=== PATIENT | female | born 1955 | race Caucasian/White ===

== ENCOUNTER 2023-08-29 21:00 | Inpatient (IN) | payer OTHER, SELFPAY ==
[2023-08-29] VITALS (9 sets, daily range): BP systolic 79–186; BP diastolic 40–105; BMI 37.1; BMI 36.8
[2023-08-29 19:05] LABS: % Basophils 0.7 % (0-2); % Eosinophils 3.7 % (0-6); % Immature Granulocytes 0.3 % (0-0.5); % Lymphocytes 29.3 % (20.5-51.1); % Monocytes 6.6 % (1.7-9.3); % Neutrophils 59.4 % (42.2-75.2); Absolute Basophils 0.1 10^3/uL (0-0.2); Absolute Eosinophils 0.3 10^3/uL (0-0.7); Absolute Lymphocytes 2.1 10^3/uL (1.2-3.4); Absolute Monocytes 0.5 10^3/uL (0.1-0.6); Absolute Neutrophils 4.3 10^3/uL (1.4-6.5); Hemoglobin 12.8 g/dL (12.0-16.0); Mean Corp Hgb Conc. 33.7 g/dL (33.0-37.0); Mean Corpuscular Hgb 30.9 pg (27.0-31.0); Mean Corpuscular Volume 91.8 fL (81.0-99.0); Mean Platelet Volume 9.9 fL (7.4-10.4); Nucleated Red Blood Cells % 0 %; Platelet Count 222 10^3/uL (130-400); Red Blood Cell Count 4.14 10^6/uL (4.20-5.40); White Blood Cell Count 7.3 10^3/uL (4.8-10.8)
--- NOTE | 2023-08-29 19:15 | ED.GENMED ---
History of Present Illness
General
Chief Complaint: Heart Rate Problem
Source: patient, spouse, family and physician (Dr. Acuna, cardiology)
Exam Limitations: none
Time Seen by Provider: 08/29/23 19:05
Nursing documentation reviewed up to this point in time: agreed with
Travel History
Have you had any contact with someone who has COVID-19?: No
Do you have any symptoms of coronavirus? Fever > 100 degrees, chills, cough, shortness of breath, sore throat, loss of taste or smell, muscle aches, or headache?: No
History of Present Illness
History of Present Illness:
67-year-old female presents the emergency department due to episodes of asystole. She had her first episode of syncope in March, and had fallen down the stairs as a result. She fractured her elbow then. She had another episode in April.
She had a loop recorder placed, and it showed that she had an asystole episode on Tuesday. On Tuesday she had a syncope episode and her gave her CPR. She was brought to [facility] emergency department. She was discharged. Loop
recorder was reviewed, and showed asystole.
Past History
Past History
ED Past Medical History: Arrthythmia, Renal failure and Other (Syncope, diverticulitis)
ED Past Surgical History: Cardiac (Cardiac catheterization) and Other (Nasal Mohs)
Social History
Tobacco: Non-smoker
Alcohol: None
Drug: None
Personal:
Living: with family
Review of Systems
Review of Systems
Allergies reviewed?: Yes
All Other Systems: Not applicable
Constitutional: Reports no symptoms
EENT: Reports no symptoms
Respiratory: Reports no symptoms
Cardiac: Reports syncope
ABD/GI: Reports no symptoms
: Reports no symptoms
Musculoskeletal: Reports no symptoms
Skin: Reports no symptoms
Neurological: Reports no symptoms
Endocrine: Reports no symptoms
Hematologic/Lymphatic: Reports no symptoms
Psychiatric: Reports no symptoms
Phy Exam
Physical Exam
Physical Exam:
Physical Exam
General: no apparent distress, not acutely ill
Neck: supple. no meningeal signs. normal posterior pharynx
Heart: s1/s2 regular rate and rhythm, no murmur. equal radial
pulses.
HEENT: Pupils equal round reactive to light, EOMI
Lungs: no acute respiratory distress. clear bilaterally
Abdomen: normal bowel sounds. not tender. no CVAT
Neuro: alert and oriented. no focal neurological deficits cranial nerves II through XII intact
Skin: no rash
Psychiatric: well kept. interactive and cooperative
Extremities: no edema. no calf tenderness. negative homans. good distal pulses
Course
Orders/Labs/Results
Orders:
Orders
08/29/23 18:48
Electrocardiogram (*1) Urgent
Reason for Study: Chest Pain
EKG- Treatment ONCE
08/29/23 18:58
Complete Blood Count/With Diff Urgent
Comprehensive Metabolic Panel Urgent
Troponin I Urgent
Abnormal Lab Results
08/29/23
18:58
RBC 4.14 L 10^6/uL
(4.20-5.40)
08/29/23 18:58
Vital Signs
Initial and Last Documented VS:
Initial Vital Signs
Temp Pulse Resp BP Pulse Ox
98.1 F 62 18 186/100 99
08/29/23 18:42 08/29/23 18:42 08/29/23 18:42 08/29/23 18:42 08/29/23 18:42
Last Documented Vital Signs
Temp Pulse Resp BP Pulse Ox
98.1 F 62 18 186/100 99
08/29/23 18:42 08/29/23 18:42 08/29/23 18:42 08/29/23 18:42 08/29/23 18:42
*Pulse Oximetry
Patient hypoxic: no
*EKG
Interpreted by ED Provider?: Yes
EKG Intrepretation Date: 08/29/23
EKG Intrepretation Time: 18:52
Interpretation: abnormal
Comparison EKG: no comparison EKG present
Heart Rate: 64
Rate: normal
Rhythm: sinus
[place]: left axis deviation
Interval: normal interval
QRS Pattern: normal QRS
Ischemia: no ischemia
*[place] Interpretation
Rate: normal
Interpretation: normal
Heart Rate: 65
Rhythm: sinus
*Critical Care Note
Total Time (30-74mins, 75-104mins- exclusive of procedures): Not Applicable
Data Reviewed
Review of Other/Old Records Reveals: Records
Source: physician (Dr. Acuna states LINQ showed asystole episode)
Patient Management
Social determinants of health affecting care: Living situation and Strong social support
Escalation/DeEscalation of care consider admission/obs:
admit for pacemaker indicated
ED Attending Note
-
Portions of this chart may have been created with voice recognition software.� Occasional wrong word or��sound alike� substitutions may have occurred due to the inherent limitations of voice recognition software.
Discharge Plan
Departure
Admit to: IVU
Presentation/result/management discussed w/ accepting MD/DO: Hospitalist
Patient with high blood pressure during this ER visit?: Yes
Condition: Good
Discharge Problem:
Cardiac asystole
Prescriptions:
No Action
multivitamin Tablet
1 tab PO DAILY
carvedilol 12.5 mg Tablet
12.5 mg PO BID
isosorbide mononitrate 30 mg Tablet Extended Release 24 Hr
30 mg PO QPM
lansoprazole 15 mg Capsule,Delayed Release(Dr/Ec)
15 mg PO DAILY
aspirin 81 mg Tablet,Chewable
81 mg PO DAILY
calcium citrate 150 mg Capsule
600 mg PO BID
rosuvastatin 10 mg Tablet
10 mg PO HS
ranolazine 1,000 mg Tablet Extended Release 12 Hr
1,000 mg PO BID
D3
1 tab PO DAILY
MegaRed [place]-3 Krill Oil
1 tab PO DAILY
Interventions
Interventions:
*Risk Screen - Suicide Last Done: 08/29/23 18:47
*General Assessment Last Done: 08/29/23 18:47
*Neglect/Abuse Screening Last Done: 08/29/23 18:47
[2023-08-29 19:21] LABS: ALT (SGPT) 19 U/L (0-35); AST (SGOT) 25 U/L (14-36); Albumin 3.6 g/dl (3.5-5.0); Alkaline Phosphatase 83 U/L (38-126); Blood Urea Nitrogen 17 mg/dl (7-17); Calcium 9.9 mg/dl (8.4-10.2); Carbon Dioxide 27 mmol/L (22-30); Chloride 107 mmol/L (98-107); Glucose 104 mg/dl (70-99); Potassium 5.3 mmol/L (3.5-5.1); Sodium 140 mmol/L (135-145); Total Bilirubin 0.5 mg/dl (0.2-1.3); Total Protein 6.9 g/dl (6.3-8.2); eGFR > 60.00
[2023-08-29 19:28] LABS: Troponin I < 0.012 ng/ml
--- NOTE | 2023-08-29 20:50 | HPS.HSE ---
Addendum entered and electronically signed by Rik Potter DO 08/29/23 21:54:
Patient seen and examined independently. Agree with findings and plan as set forth by Fátima Kay PA-C.
Patient is a 67y F with PMH significant for hypertension who presents to ED at the direction of her outpatient Leathersmith for evaluation of marked pause / asystole. Patient apparently had a 'syncopal' episode last Tuesday. She felt as if
she were passing out and called for her . He entered to find her unresponsive and apparently pulseless. He started CPR and patient regained pulse / consciousness after about one minute. She was taken to [facility] where she was
admitted for several days. EEG was done (results reportedly pending) and patient was apparently diagnosed with seizure disorder and started on Vimpat and Topiramate.
Patient returned to home where she states she has been feeling well since. Today, she was called by her Leathersmith and advised that she had a significant pause / episode of asystole on her implanted cardic monitor. This apparently corresponds
with her episode last Tuesday.
Ass:
Marked Sinus Pause / Asystole
Recurrent Syncope - Likely secondary to the above
Cardiac Microvascular Disease
Benign Hypertension
Dyslipidemia
CKD II
GERD
Plan:
Admit to IVU with transcutaneous pacer pads in place.
Hold AV jayde agents acutely.
NPO after midnight for probable PPM placement in the AM.
Cardiology consulted.
Continue ASA, antianginal agents.
Original Note:
Family Physician
-
Family Physician: NOT KNOW UNKNOWN - PT DOES
Chief Complaint
-
Syncope
History of Present Illness
Patient is a 67 y/o female past medical history of cardiac microvascular, hypertension, and CKD II who presents following multiple syncope episode. Patient reports she had a loop recorder placed in May 2023 following a syncopal episode that
resulted in a fall down the stairs, and a second near syncopal episode. Last Tuesday, Aug 24 patient had a significant syncopal episode. She states she began to feel 'wonky' and called for her . Her found her pulseless and he
started CPR. He notes after about 10 compressions she started to come around, and she was taken to [facility]. While at [facility] she had an extensive work-up including carotid ultrasound, echocardiogram and EEG. She was discharged on
Aug 26 with the diagnosis of seizure and was started on Vimpat and Topamax. Today patient received a call from her tech brazer tester that her loop recorder showed a prolonged pause on Tuesday and she was instructed to go to the emergency department
for evaluation. Patient denies any complaints at the present time.
Medical History
Past Medical History
Past Medical History: Reports Other
Additional Past Medical History:
Cardiac Microvascular Disease
Essential Hypertension
Hyperlipidemia
CKD Stage II
GERD
Past Surgical History: Reports Other
Additional Past Surgical History:
Moh's Surgery
Social History
Tobacco: Non-smoker
Personal:
Living: With Family
Family History
Family History: Not pertinent
Allergies / Home Medications
Allergies reflects when Allergies were last updated in [employer].
Home Medications with original date entered in Txt[employer]
Allergy/Medication List:
Allergies
Allergy/AdvReac Type Severity Reaction Status Date / Time
No Known Allergies Allergy Verified 08/29/23 18:42
Home Medications
aspirin 81 mg chewable tablet 81 mg PO DAILY 05/18/23
carvedilol 12.5 mg tablet 12.5 mg PO BID 05/18/23
cholecalciferol (vitamin D3) 25 mcg (1,000 unit) tablet (Vitamin D3) 25 mcg PO DAILY ##0 05/18/23
isosorbide mononitrate 30 mg tablet,extended release 24 hr 30 mg PO DAILY 05/18/23
lansoprazole 15 mg capsule,delayed release 15 mg PO DAILY 05/18/23
multivitamin 1 tab PO DAILY 05/18/23
omega 3-ivz-msg-fish oil 1,000 mg (120 mg-180 mg) capsule (Fish Oil) 1 cap PO DAILY ##0 05/18/23
ranolazine 1,000 mg tablet,extended release,12 hr 1,000 mg PO BID 05/18/23
rosuvastatin 10 mg tablet 10 mg PO HS 05/18/23
calcium carbonate 500 mg calcium (1,250 mg) tablet 500 mg PO DAILY 08/29/23
lacosamide 50 mg tablet (Vimpat) 50 mg PO BID 08/29/23
topiramate 25 mg tablet 25 mg PO BID 08/29/23
Review of Systems
-
A 12 point ROS was completed and negative except as noted: Yes
Constitutional: Denies Fever or Chills
Respiratory: Denies Cough or Trouble Breathing
Cardiac: Reports Syncope; Denies Chest Pain or Palpitations
Physical Exam
Vital Signs
Vital Signs
Temp Pulse Resp BP Pulse Ox
98.1 F 65 20 125/89 98
08/29/23 18:42 08/29/23 20:24 08/29/23 20:24 08/29/23 20:24 08/29/23 20:24
Physical Exam
General: Comfortable and Conversant
HEENT: Anicteric and Moist mucous membranes
Respiratory: Clear and Non Labored Respirations
Cardiac: S1/S2 and Regular Rhythm
GI: Soft and Non Tender
Rectal: Deferred by Provider
Musculoskeletal: No Clubbing, No Cyanosis and No Edema
Skin: Warm and Dry
Neuro: Awake, Oriented and Nonfocal/grossly intact
Psych: Calm
Laboratory Results
-
08/29/23 18:58
08/29/23 18:58
Laboratory Results
Total Bilirubin 0.5 mg/dl (0.2-1.3) 08/29/23 18:58
AST 25 U/L (14-36) 08/29/23 18:58
ALT 19 U/L (0-35) 08/29/23 18:58
Alkaline Phosphatase 83 U/L (38-126) 08/29/23 18:58
Troponin I < 0.012 ng/ml 08/29/23 18:58
Data Reviewed
-
Lab Data: Labs Reviewed by me
Impression/Plan
-
Recurrent Syncope secondary to Prolonged Pause
-Admit to IVU for continuous monitoring
-Keep defibrillator pads in place
-NPO after midnight for pacemaker placement
-Discontinue seizure medications
Cardiac Microvascular Disease
-Continue aspirin
-Continue Ranexa
-Continue isosorbide mononitrate
Essential Hypertension
-Hold Coreg in setting prolonged pauses
Hyperlipidemia
-Continue Crestor
CKD Stage II
-Creatinine at baseline
GERD
-Continue Protonix
DVT proph: SCDs
Code Status: Full Code
[2023-08-29 21:11] LABS: Urine Albumin Negative (Neg - Trace); Urine Bilirubin Negative (Negative); Urine Character Clear (Clear); Urine Color Yellow; Urine Glucose Negative (Negative); Urine Ketone Negative (Negative); Urine Leukocyte Negative (Negative); Urine Nitrite Negative (Negative); Urine Occult Blood Negative (Negative); Urine Specific Gravity 1.005 (<1.030); Urine Urobilinogen Negative (Neg - 1+); Urine pH 6.5 (5.0-9.0)
--- NOTE | 2023-08-29 23:20 | PTCARENOTE ---
Patient arrived to the floor, bedrest maintained. Placed on telemetry. Patient is AO x3, denies lightheadedness. SR with first degree HB, BBB, prolonged QT, HR 60-70's. NPO past midnight, plan of care reviewed with patient and family, call lugo in
reach
[2023-08-29] MEDS: CRESTOR 10 MG PO (23:44)
[2023-08-30] VITALS (9 sets, daily range): BP systolic 110–165; BP diastolic 54–86
[2023-08-30 05:11] LABS: Hematocrit 36.6 % (37.0-47.0); Hemoglobin 12.4 g/dL (12.0-16.0); Mean Corp Hgb Conc. 33.9 g/dL (33.0-37.0); Mean Corpuscular Hgb 30.8 pg (27.0-31.0); Mean Corpuscular Volume 90.8 fL (81.0-99.0); Mean Platelet Volume 9.8 fL (7.4-10.4); Platelet Count 198 10^3/uL (130-400); Red Blood Cell Count 4.03 10^6/uL (4.20-5.40); Red Cell Dist. Width 14.1 % (11.5-14.5); White Blood Cell Count 7.1 10^3/uL (4.8-10.8)
--- NOTE | 2023-08-30 05:32 | PTCARENOTE ---
NPO since midnight, CHG wipes to chest, gown and leads changed.
[2023-08-30 05:34] LABS: Blood Urea Nitrogen 13 mg/dl (7-17); Calcium 9.3 mg/dl (8.4-10.2); Carbon Dioxide 26 mmol/L (22-30); Chloride 109 mmol/L (98-107); Estimated Creatinine Clearance 60 ml/min; Glucose 100 mg/dl (70-99); Magnesium 2.1 mg/dl (1.6-2.3); Sodium 139 mmol/L (135-145); eGFR > 60.00
[2023-08-30 06:03] LABS: TSH Reflex To Free T4 6.82 uIU/ml (0.47-4.68)
--- NOTE | 2023-08-30 07:34 | CON.CAR ---
Addendum entered and electronically signed by Ashutosh Sky MD 08/30/23 14:09:
Patient seen, interviewed and examined by me.
Well-appearing, no acute distress
Regular rate and rhythm with normal S1 and S2, no S3 no S4. There is a grade 1/6 apical holosystolic murmur and no rubs. PMI is normally placed.
Lungs are clear to auscultation bilaterally without wheezes rales or rhonchi.
Abdomen soft nontender nondistended with normoactive bowel sounds
Extremities show trace pretibial edema bilaterally no clubbing or cyanosis.
Neurologic exam is grossly nonfocal.
Agree with advanced practice professionals assessment and plan as noted below.
Patient has symptomatic nonreversible bradycardia related to intermittent complete heart block. She tells me she has developed left bundle branch block and likely has progressive conduction system disorder.
I reviewed this with the patient, her and her daughter. We discussed management options and have settled on implantation of permanent pacemaker. I explained permanent pacemaker implantation as well as possible risks and she wishes to
proceed with both pacemaker implantation as well as removal of implanted loop recorder. Informed consent obtained by me. Will proceed with removal of loop recorder and implantation of dual-chamber permanent pacer later today.
Original Note:
Consultation
Consultation Request
Date/Time Consultation Requested: 08/29/23 at 2316
Date/Time Consultation Performed: 08/30/23 at 0735
Requesting Provider: Dr. Huff
Performing Provider: Dr. Ashutosh Sky
Reason for Consultation: Syncope, complete heart block
Medical History
-
History of Present Illness:
Patient came to [facility] yesterday after an outpatient device check found she had complete heart block 08/24/23, cardiology is now consulted for a PPM today. Patient had an Dominguez ILR placed 05/18/23 after she was seen at [facility] for syncope while walking
up stairs. Patient then had an episode of witnessed syncope on Tuesday night, 08/24/23. Her did CPR and she awoke and was taken to [facility]. Patient was admitted Tuesday and nights and was discharged to home on
Tuesday. Patient says she told [facility] that she had an ILR, but it was not interrogated. Patient's called [facility] office to ask if anything was seen on ILR, but last transmission was Tuesday night, 08/23/23 and patient's event was
Tuesday night and she missed her usual nightly download because she was admitted to [facility]. Then she was discharged on Tuesday and when her device downloaded Tuesday night the information was not seen in the office until Tuesday
morning. Once information was received Tuesday the patient was called and asked to come to [facility]. Patient has not had recurrent events.
PMH:
s/p Dominguez ILR 05/18/23
cLBBB
HTN
Hyperlipidemia
Cardiac microvascular disease
Past Medical History
Past Medical History: Other (in HPI)
Past Surgical History: Gynecological (D&C)
Social History
Tobacco: Non-Smoker
Alcohol: None
Drug: None
Personal:
Living: With Family
Family History
Family History: CAD and Diabetes
Allergies / Home Medications
Allergy/AdvReac Type Severity Reaction Status Date / Time
No Known Allergies Allergy Verified 08/29/23 18:42
Medication Instructions Recorded Confirmed Type
aspirin 81 mg chewable tablet 81 mg PO DAILY 05/18/23 08/29/23 History
carvedilol 12.5 mg tablet 12.5 mg PO BID 05/18/23 08/29/23 History
cholecalciferol (vitamin D3) 25 25 mcg PO DAILY ##0 05/18/23 08/29/23 History
mcg (1,000 unit) tablet (Vitamin
D3)
isosorbide mononitrate 30 mg 30 mg PO DAILY 05/18/23 08/29/23 History
tablet,extended release 24 hr
lansoprazole 15 mg capsule,delayed 15 mg PO DAILY 05/18/23 08/29/23 History
release
multivitamin 1 tab PO DAILY 05/18/23 08/29/23 History
omega 4-igv-hkk-fish oil 1,000 mg 1 cap PO DAILY ##0 05/18/23 08/29/23 History
(120 mg-180 mg) capsule (Fish Oil)
ranolazine 1,000 mg 1,000 mg PO BID 05/18/23 08/29/23 History
tablet,extended release,12 hr
rosuvastatin 10 mg tablet 10 mg PO HS 05/18/23 08/29/23 History
calcium carbonate 500 mg calcium 500 mg PO DAILY 08/29/23 08/29/23 History
(1,250 mg) tablet
lacosamide 50 mg tablet (Vimpat) 50 mg PO BID 08/29/23 08/29/23 History
topiramate 25 mg tablet 25 mg PO BID 08/29/23 08/29/23 History
Review of Systems
-
History Source: Patient
All other systems: Negative unless noted
Physical Exam
Vital Signs
Temp Pulse Resp BP Pulse Ox
97.5 F 63 16 148/80 98
08/30/23 07:20 08/30/23 07:20 08/30/23 07:20 08/30/23 04:18 08/30/23 07:20
GEN: NAD. AAOx3
HEENT: EOMI, MMM
LUNGS: CTA B/L, no wheezes or rales
CV: Reg, S1/S2, no murmur
ABD: soft, BS+, NT, ND
EXT: No clubbing, cyanosis, lesions or edema B/L
NEURO: Gross non-focal
SKIN: Warm, dry and pink. No rash
Lab Results
08/30/23 04:26
08/30/23 04:26
Troponin I < 0.012 ng/ml 08/29/23 18:58
Impression / Plan
-
PCP: Dr. Noemi Montemayor
Cardiology: Dr. Acuna
Impression:
Syncope with complete heart block, asystole, received bystander CPR 08/24/23
s/p Dominguez ILR 05/18/23
cLBBB
HTN
Hyperlipidemia
Cardiac microvascular disease
Hyperkalemia
Echo 01/05/23: EF 55-60%, mild conc LVH, normal RV size and function
Plan:
-Patient came to [facility] yesterday after an outpatient device check found she had complete heart block 08/24/23, cardiology is now consulted for a PPM today. Patient had an Dominguez ILR placed 05/18/23 after she was seen at [facility] for syncope while walking
up stairs. Patient then had an episode of witnessed syncope on Tuesday night, 08/24/23. Her did CPR and she awoke and was taken to [facility]. Patient was admitted Tuesday and nights and was discharged to home on
Tuesday. Patient says she told [facility] that she had an ILR, but it was not interrogated. Patient's called [facility] office to ask if anything was seen on ILR, but last transmission was Tuesday night, 08/23/23 and patient's event was
Tuesday night and she missed her usual nightly download because she was admitted to [facility]. Then she was discharged on Tuesday and when her device downloaded Tuesday the information was not seen in the office until Tuesday
morning. Once information was received Tuesday the patient was called and asked to come to [facility]. Patient has not had recurrent events.
-ECG and ILR strips reviewed by me. ECG this admission with SR and cLBBB.
-ILR downloads nightly at approx midnight to 3 AM, she had syncope Tuesday night around 11 PM and then went to [facility]. ILR not checked during admission. Patient returned home Tuesday and device appropriately downloaded Tuesday
and information received and reviewed Tuesday in the office. Reviewed with patient
-Patient with complete heart block/asystole during her 08/24/23 night episode and a PPM is indicated.
-Reviewed pacer implant procedure with patient along with post-implant activity restrictions.
-Pre-implant orders placed
-LBBB is chronic
-Hyperkalemia on admission that resolved without specific intervention
[2023-08-30] MEDS: PROTONIX 20 MG PO (08:15)
[2023-08-30] MEDS: LOW STRENGTH ASPIRIN 81 MG PO (08:15)
[2023-08-30] MEDS: RANEXA EXTENDED RELEASE 1000 MG PO ×2 (08:15→20:02)
[2023-08-30] MEDS: IMDUR (EXTENDED RELEASE) 30 MG PO (08:16)
--- NOTE | 2023-08-30 08:49 | PTCARENOTE ---
Assumed care of pt from night RN. Pt received awake and alert, Ox3. VSS, CM shows SB with first degree AVB and RBBB, POX 98% on RA. Pt denies any pain or discomfort, for possible PPM today.
--- NOTE | 2023-08-30 08:56 | W.PN.HOSP.TC ---
Today's Communication/Plan
-
Keep defibrillator pads in place
PPM placement today
N.p.o.
Hold Coreg in the setting of asystole and long pauses
Assessment / Plan
Assessment / Plan
Assessment:
Presentation with recurrent syncopal episodes.
Hyperkalemia on admission.
Subclinical hypothyroidism.
Conditions SURGERY SCHEDULER:
Cardiac Microvascular Disease
Benign Hypertension
Dyslipidemia
History of CKD II
GERD
Plan:
Presentation with recurrent syncopal episodes
-Last episode August 24, 2023 with asystole recorded by ILR 08/24.
-ECG on admission with sinus rhythm and left bundle branch block likely chronic.
-S/p loop recorder placement May 2023 with marked Sinus Pause/Asystole
-Recurrent Syncope -Likely secondary to the above.
-Keep defibrillator pads in place pending PPM placement.
-Plan for PPM placement today.
-N.p.o.
-Hold antiseizure medications, consider discontinuing at discharge.
-Cardiology consult.
-Continue antianginal agents.
-Continue ASA.
-Hold carvedilol for now.
Subclinical hypothyroidism
-Start levothyroxine 50 mcg daily.
-TSH with reflex T4 assay in 3 weeks.
Cardiac Microvascular Disease
-Continue isosorbide mononitrate and ranolazine.
-Continue ASA.
-Hold carvedilol.
Benign Hypertension
-Hold carvedilol in the setting of long pauses/asystole
Dyslipidemia
-Continue rosuvastatin.
History of CKD II
-Stable with baseline creatinine.
GERD
-Continue Protonix
DVT prophylaxis
-SCDs
Anticipated Discharge: 24 - 48 hours
Subjective/Interval History
-
Date of Service: August 30, 2023
67-year-old female with a past medical history of left bundle branch block, hypertension, hyperlipidemia, cardiac microvascular disease, CKD II, who presented to the ED with episodes of recurrent syncope. last episode was on Aug 24 when her loop
recorder recorded a prolonged pause corresponding to asystole. Her sternman reviewed the report yesterday and instructed her to come in for evaluation and possible PPM placement.
Objective Data
-
Labs:
Laboratory Results
08/30/23
04:26
WBC 7.1
Hgb 12.4
Hct 36.6 L
Plt Count 198
Sodium 139
Potassium 4.0
Chloride 109 H
Carbon Dioxide 26
BUN 13
Creatinine 1.0
Glucose 100 H
Calcium 9.3
Vital Signs:
Vital Signs
Temp Pulse Resp BP Pulse Ox
97.5 F 65 16 141/70 98
08/30/23 07:20 08/30/23 08:00 08/30/23 07:20 08/30/23 07:20 08/30/23 08:41
Physical Exam
-
General: Well Developed and No Apparent Distress
HEENT: Normocephalic, Atraumatic and Moist Mucous Membranes
Respiratory: Clear to Auscultation
Cardiac: Regular Rhythm and S1/S2; Negative Murmur, Rub or Gallop
GI: Soft, Nontender, Nondistended and Normal Bowel Sounds; Negative Organomegaly
Rectal: Deferred by Provider
Musculoskeletal: No Clubbing, No Cyanosis and No Edema
Skin: Negative Rash
Neuro: Awake, Alert, Oriented, AO x 3 and Nonfocal/Grossly Intact
Psych: Calm and Intact Judgement/Insight
Data Reviewed
-
Labs: Labs Reviewed by me and Discussed with Physician
Old Records: Reviewed
--- NOTE | 2023-08-30 14:20 | W.PN.UPDATE ---
Update Note
Progress Note Update
Patient seen and examined
Discussed with resident
Impression:
Syncope with complete heart block, asystole, CPR applied by at home on 08/24.
Prior history of syncope with loop recorder implanted on 05/26.
Chronic LBBB.
Hypothyroidism, subclinical, possibly symptomatic given complete heart block
Cardiac microvascular disease on Ranexa.
Essential hypertension
Mild hyperkalemia on presentation
Plan:
Documented complete heart block/asystole.
Temporary pacer in place from ED.
Pending PPM placement
Hold Coreg
With elevated TSH (normal free T4) suspect subclinical�symptomatic hypothyroidism given complete heart block on presentation
Will start low-dose of levothyroxine at 50 mcg daily and follow-up TFTs in 4 to 6 weeks
Cardiac microvascular disease
No prior history of obstructive CAD.
Eventually resume preadmission regimen including Coreg, Imdur, aspirin, statin, Ranexa.
Recent hospitalization with syncope in outside hospital most likely related to cardiac.
Retrospectively less likely seizure disorder.
Discussed with patient
Plan is to discontinue lacosamide and topiramate.
--- NOTE | 2023-08-30 14:32 | CM ---
spoke to pt in room, she is prev indep, lives with her husb in a 2 story home with 4 steps to enter. she denies any dme's or dc planning needs. plan is for dc to home when medically stable.
--- NOTE | 2023-08-30 15:14 | PTCARENOTE ---
Pt to CCL for PPM insertion.
--- NOTE | 2023-08-30 17:41 | ITS.CL.PACE ---
Addendum entered and electronically signed by Ashutosh Sky MD 09/07/23 11:08:
Actual date of procedure is 08/30/2023
Additionally during this procedure the implanted loop recorder was removed using the same incision from the permanent pacemaker device implantation. No additional incisions were required to remove the loop recorder.
Original Note:
Logistics Director - Pacemaker Implant
Pacemaker Implant
Procedure Report:
PACEMAKER IMPLANT REPORT
Primary Care Provider: Dr Noemi Montemayor
Primary wire stockkeeper: Dr Fanta Acuna
Date of Procedure: 5 09/28/2023
Procedure:
Implantation of dual-chamber permanent pacemaker utilizing the left bundle branch for conduction system pacing
Removal of implanted loop recorder
Indication/Diagnosis:
Non-reversible symptomatic bradycardia due to sinus node dysfunction as well as intermittent third degree atrioventricular block resulting in recurrent syncope.
After informed consent was obtained, 'time out' was called and confirmed, the patient was prepped and draped in a sterile fashion. Lidocaine with epi was used for local anesthesia. Central venous access was obtained via subclavian venipuncture. An
incision was made along the left chest and a pre-pectoral pocket was formed. Using a Seldinger technique and peel-away sheaths, the pacing leads were placed under fluoroscopic guidance.
Fluoroscopy was used to determine likely anatomic site for left bundle branch pacing. The Medtronic C315 sheath was used to deliver the Medtronic 3830 Selectsecure pacing lead with the helix exposed just exposed from the sheath tip during continuous
monitoring when pacemapping the septum during gentle clockwise rotation to obtain a paced QRS morphology of a W pattern in lead V1. Once the suspected optimal site was identified, lead deployment was performed with several rapid rotations as paced
QRS morphology was intermittently monitored until a paced QRS complex in lead V1 demonstrated development of an R wave (qR or rSR).
Unipolar pacing impedance dropped by approximately 100-200 ohms suggesting it had reached the left ventricular subendocardial.
Stable VEgm with positive injury current is present throughout lead position and at end of case.
Final unipolar pacing impedance is 1000 Ohms
Unipolar pacing threshold is stable at 0.5 V @ 0.4 ms.
The patient had pre-existing left bundle branch block at baseline with QRS dur 156 ms.
Final conduction system paced QRS complex duration is 117 ms
LVAT is 85] ms and peak V5 -> peak V1 timing is 42 ms
Right atrial lead was placed at the RAA.
Once testing (see below) showed adequate and stable function, the leads were secured using the suture sleeves. The pocket was liberally irrigated with antibiotic solution. The leads were connected to the generator header and the leads and
generator were placed within the pocket. Fluoroscopy confirmed stable lead position. The pocket was closed in the typical fashion.
Fluoroscopy was used to guide lead placement. Fluoroscopic exposure [ ] min and [ ] mGy
IMPLANTS:
Medtronic [id number], Left Pectoral
RA: Medtronic 5076-45, RAA
RV: Medtronic 3830, Interventricular septum at LBB
DEVICE TESTING:
Sensing: RA 3.5 mV, RV 17.7 mV
Capture: RA 0.7 V@0.4ms, RV 0.5 V@0.4ms
Ohms: RA 640, RV 912
FINAL PROGRAMMING
Joe Pacing: DDDR 60-130 ppm (note Paced AV Delay programmed to 50 ms to provide optimal QRS configuration with conduction system pacing).
COMPLICATIONS:
None
CONCLUSIONS:
1: Successful implant of dual chamber permanent pacemaker utilizing Left Bundle Branch conduction system capture for pacing. Overall findings are most consistent with Left Ventricular Septal capture.
RECOMMENDATIONS:
1. Post-op care (tele, CXR, IV abx)
2. In-Office wound check in 5-7 days
Copy to:
Dr Noemi Montemayor
Dr Fanta Acuna
--- NOTE | 2023-08-30 18:03 | PTCARENOTE ---
Assumed care of pt upon tsf from [facility] post left PPM placement. Pt arrives drowsy but oriented, VSS, CM shows SB with first degree AVB, with BBB. POX 98% on RA. Immobilizer intact to left arm, pressure dsg over Aquacel intact, area soft and non
tender. Family at bedside.
[2023-08-30] MEDS: COREG 12.5 MG PO (20:02)
[2023-08-30] MEDS: CRESTOR 10 MG PO (22:26)
[2023-08-30] MEDS: ANCEF 5 IV (22:27)
--- NOTE | 2023-08-30 22:58 | PTCARENOTE ---
Pt rec'd at change of shift awake,alert no complaints. left ant chest pacer site with pressure drsg and sling in place. cxr completed in dept with no pneumo noted. HOB at 30 degrees. sinus with first degree BBB on telemetry. assisted to bathroom to
void. gait steady. call lugo within reach.
[2023-08-31] MEDS: TYLENOL 650 MG PO ×2 (03:00→09:08)
[2023-08-31 03:10] VITALS: BP 141/79
--- NOTE | 2023-08-31 03:41 | PTCARENOTE ---
Pt oob to void. medicated with Tylenol for mild pain at pacer site. Sinus with BBB on telemetry.
[2023-08-31 04:36] LABS: Hematocrit 36.4 % (37.0-47.0); Hemoglobin 12.3 g/dL (12.0-16.0); Mean Corp Hgb Conc. 33.8 g/dL (33.0-37.0); Mean Corpuscular Hgb 30.8 pg (27.0-31.0); Mean Platelet Volume 10.2 fL (7.4-10.4); Platelet Count 200 10^3/uL (130-400); Red Cell Dist. Width 14.2 % (11.5-14.5)
[2023-08-31 05:13] LABS: Blood Urea Nitrogen 15 mg/dl (7-17); Calcium 9.2 mg/dl (8.4-10.2); Carbon Dioxide 27 mmol/L (22-30); Chloride 105 mmol/L (98-107); Estimated Creatinine Clearance 60 ml/min; Glucose 105 mg/dl (70-99); Potassium 4.4 mmol/L (3.5-5.1); Sodium 138 mmol/L (135-145); eGFR > 60.00
[2023-08-31] MEDS: ANCEF 5 IV (06:09)
[2023-08-31] MEDS: SYNTHROID 50 MCG PO (06:09)
--- NOTE | 2023-08-31 06:35 | PTCARENOTE ---
Pt reports good relief from Tylenol. No c/o pain at present.
[2023-08-31 07:49] VITALS: BP 134/73
[2023-08-31] MEDS: IMDUR (EXTENDED RELEASE) 30 MG PO (09:07)
[2023-08-31] MEDS: COREG 12.5 MG PO (09:07)
[2023-08-31] MEDS: RANEXA EXTENDED RELEASE 1000 MG PO (09:07)
[2023-08-31] MEDS: LOW STRENGTH ASPIRIN 81 MG PO (09:07)
[2023-08-31] MEDS: PROTONIX 20 MG PO (09:08)
--- NOTE | 2023-08-31 09:43 | W.PN.HOSP.TC ---
Today's Communication/Plan
-
S/p PPM placement 08/30
Continue preadmission regimen
Hold antiseizure medications with plans to discontinue at discharge
Patient with elevated TSH and normal free T4. Suspect subclinical hypothyroidism. Continue levothyroxine and recheck thyroid function test in 4 to 6 weeks.
Assessment / Plan
Assessment / Plan
Assessment:
Presentation with recurrent syncopal episodes.
Hyperkalemia on admission.
Subclinical hypothyroidism.
Conditions ASSOCIATE MEDIA PLANNER:
Cardiac Microvascular Disease
Benign Hypertension
Dyslipidemia
History of CKD II
GERD
Plan:
Presentation with recurrent syncopal episodes
-S/p loop recorder placement May 2023 with recorded sinus Pause/Asystole.
-S/p PPM placement 08/30
-ECG on admission with sinus rhythm and left bundle branch block likely chronic, temporary pacer placed in the ED here
-Recurrent Syncope -Likely secondary to the above.
-Cardiology appreciated.
-Continue preadmission regimen including ASA, Coreg, Imdur, statin, Ranexa.
Subclinical hypothyroidism
-Patient with elevated TSH and normal free T4. Suspect subclinical hypothyroidism.
-Start levothyroxine 50 mcg daily.
-TSH with reflex T4 assay in 4-6 weeks.
Suspected seizure disorder with recurrent syncopal episodes.
-Syncope most likely cardiac related.
-Hold antiseizure medications with plans to discontinuing at discharge.
Cardiac Microvascular Disease
-Continue isosorbide mononitrate and ranolazine.
-Continue ASA.
-Hold carvedilol.
Benign Hypertension
-Hold carvedilol in the setting of long pauses/asystole
Dyslipidemia
-Continue rosuvastatin.
History of CKD II
-Stable with baseline creatinine.
GERD
-Continue Protonix
DVT prophylaxis
-SCDs
Anticipated Discharge: Within 24 hours
Subjective/Interval History
-
Date of Service: August 31, 2023
Objective Data
-
Labs:
Laboratory Results
08/31/23
03:18
WBC 8.0
Hgb 12.3
Hct 36.4 L
Plt Count 200
Sodium 138
Potassium 4.4
Chloride 105
Carbon Dioxide 27
BUN 15
Creatinine 1.0
Glucose 105 H
Calcium 9.2
Vital Signs:
Vital Signs
Temp Pulse Resp BP Pulse Ox
97.5 F 69 16 134/73 99
08/31/23 07:46 08/31/23 08:45 08/31/23 07:46 08/31/23 07:49 08/31/23 09:02
I&O
08/30/23 08/31/23 09/01/23
06:59 06:59 06:59
Intake Total 240 / 240 180 / 180
Balance 240 / 240 180 / 180
Review of Systems
-
History Source: Patient
All other systems: Not reviewed unless documented
Constitutional: Reports No Symptoms
EENT: Reports No Symptoms Reported
Respiratory: Reports No Symptoms
Cardiac: Reports No Symptoms
Abdomen/GI: Reports No Symptoms
Genitourinary: Reports No Symptoms
Musculoskeletal: Reports No Symptoms
Skin: Reports No Symptoms
Neuro: Reports No Symptoms
Endocrine: Reports No Symptoms
Physical Exam
-
General: Well Developed and No Apparent Distress
HEENT: Normocephalic, Atraumatic, Moist Mucous Membranes and PERRLA
Respiratory: Clear to Auscultation
Cardiac: Regular Rhythm and S1/S2; Negative Murmur, Rub or Gallop
GI: Soft, Nontender, Nondistended and Normal Bowel Sounds; Negative Organomegaly
Rectal: Deferred by Provider
Musculoskeletal: No Clubbing, No Cyanosis and No Edema
Skin: Warm and Dry; Negative Rash
Neuro: Awake, Alert, Oriented, AO x 3 and Nonfocal/Grossly Intact
Psych: Calm and Intact Judgement/Insight
Data Reviewed
-
Labs: Labs Reviewed by me and Discussed with Physician
Old Records: Reviewed
--- NOTE | 2023-08-31 11:01 | W.PN.CARDCBS ---
Today's Communication / Plan
-
Stable for discharge to home today
Impression / Plan
-
PCP: Dr. Noemi Montemayor
Cardiology: Dr. Acuna
Impression:
Syncope with complete heart block, asystole, received bystander CPR 08/24/23
s/p Dominguez ILR 05/18/23
cLBBB
HTN
Hyperlipidemia
Cardiac microvascular disease
Hyperkalemia
Echo 01/05/23: EF 55-60%, mild conc LVH, normal RV size and function
Plan:
She underwent successful implantation of Medtronic dual-chamber conduction system pacing system, conduction pacing via left bundle branch conduction system. Implanted loop recorder was also removed
Hemodynamically stable. Vital signs stable.
Chest x-ray with no pneumothorax and stable position of the leads. Laboratory studies reviewed, stable.
I took the dressing down and the Aquacel dressing underneath is clean and dry.
I did interrogate the pacemaker which has normal function. I have reprogrammed the device from MVP mode to DDDR mode with short AV intervals to promote resynchronization pacing.
She has a wound check at our office November 05 at 2:20 PM.
Stable for discharge from a cardiac standpoint.
Progress Note - Province Archivist
Subjective
Date of Service: August 31, 2023
Feels well, no chest pain shortness of breath palpitations or dizziness
Objective
Labs:
08/31/23 03:18
08/31/23 03:18
Labs
Hgb 12.3 g/dL (12.0-16.0) 08/31/23 03:18
Hct 36.4 % (37.0-47.0) L 08/31/23 03:18
Plt Count 200 10^3/uL (130-400) 08/31/23 03:18
Sodium 138 mmol/L (135-145) 08/31/23 03:18
Potassium 4.4 mmol/L (3.5-5.1) 08/31/23 03:18
BUN 15 mg/dl (7-17) 08/31/23 03:18
Creatinine 1.0 mg/dL (0.6-1.0) 08/31/23 03:18
Glucose 105 mg/dl (70-99) H 08/31/23 03:18
Troponins
08/29/23
18:58
Troponin I < 0.012
Vital Signs and I&O:
Vital Signs
Temp Pulse Resp BP Pulse Ox
97.5 F 69 16 134/73 99
08/31/23 07:46 08/31/23 08:45 08/31/23 07:46 08/31/23 07:49 08/31/23 09:02
Vital Signs
Temp Pulse Resp BP Pulse Ox
97.5 F 69 16 134/73 99
08/31/23 07:46 08/31/23 08:45 08/31/23 07:46 08/31/23 07:49 08/31/23 09:02
Intake & Output
08/29/23 08/30/23 08/31/23 09/01/23
06:59 06:59 06:59 06:59
Intake Total 240 / 240 180 / 180
Balance 240 / 240 180 / 180
Physical Exam
Physical Exam
Well-appearing no acute distress
Dressing at left chest is clean dry
Heart regular rate and rhythm normal S1-S2 no S3 no S4 is grade 1/6 apical holosystolic murmur no rubs
Lungs are clear auscultation bilaterally
--- NOTE | 2023-08-31 11:25 | W.DS.TRANS ---
Documented by User: Tray Jay MD, Resident 08/31/23 12:11
DC Summary - Nurse Emergency Room
-
Discharge Instructions:
Discharge Diagnosis/Procedures Pacemaker implant
Diet Regular
Activity No restrictions
Driving Restrictions No driving for 1 week
Instructions:
Stand-Alone Forms: DC Inst - Implanted Device
Changes to Home Medications: Yes
Discharge Medications:
DC Medications w/original date entered in [place]
aspirin 81 mg chewable tablet 81 mg PO DAILY Blood Clot Prevention/Tx 05/18/23
carvedilol 12.5 mg tablet 12.5 mg PO BID Heart Failure 05/18/23
cholecalciferol (vitamin D3) 25 mcg (1,000 unit) tablet (Vitamin D3) 25 mcg PO DAILY Supplement ##0 05/18/23
isosorbide mononitrate 30 mg tablet,extended release 24 hr 30 mg PO DAILY Heart Disease/Condition 05/18/23
lansoprazole 15 mg capsule,delayed release 15 mg PO DAILY Gastrointestinal Issue 05/18/23
multivitamin 1 tab PO DAILY Supplement 05/18/23
omega 4-lre-lwf-fish oil 1,000 mg (120 mg-180 mg) capsule (Fish Oil) 1 cap PO DAILY Supplement ##0 05/18/23
ranolazine 1,000 mg tablet,extended release,12 hr 1,000 mg PO BID Heart Failure 05/18/23
rosuvastatin 10 mg tablet 10 mg PO HS 05/18/23
calcium carbonate 500 mg calcium (1,250 mg) tablet 500 mg PO DAILY Supplement 08/29/23
levothyroxine 50 mcg tablet 50 mcg PO DAILY AT 0700 #30 tabs 08/31/23
Home Medication Changes
Pending Results: No

Documented by User: Jake Huff MD 08/31/23 12:12
DC Summary - Nurse Emergency Room
-
Discharge Medications:
DC Medications w/original date entered in [place]
aspirin 81 mg chewable tablet 81 mg PO DAILY Blood Clot Prevention/Tx 05/18/23
carvedilol 12.5 mg tablet 12.5 mg PO BID Heart Failure 05/18/23
cholecalciferol (vitamin D3) 25 mcg (1,000 unit) tablet (Vitamin D3) 25 mcg PO DAILY Supplement ##0 05/18/23
isosorbide mononitrate 30 mg tablet,extended release 24 hr 30 mg PO DAILY Heart Disease/Condition 05/18/23
lansoprazole 15 mg capsule,delayed release 15 mg PO DAILY Gastrointestinal Issue 05/18/23
multivitamin 1 tab PO DAILY Supplement 05/18/23
omega 4-gkq-ivp-fish oil 1,000 mg (120 mg-180 mg) capsule (Fish Oil) 1 cap PO DAILY Supplement ##0 05/18/23
ranolazine 1,000 mg tablet,extended release,12 hr 1,000 mg PO BID Heart Failure 05/18/23
rosuvastatin 10 mg tablet 10 mg PO HS 05/18/23
calcium carbonate 500 mg calcium (1,250 mg) tablet 500 mg PO DAILY Supplement 08/29/23
levothyroxine 50 mcg tablet 50 mcg PO DAILY AT 0700 #30 tabs 08/31/23
Home Medication Changes
Antiepileptic medications stopped
Levothyroxine initiated
--- NOTE | 2023-08-31 11:26 | W.DCSUMMARY ---
Documented by User: Tray Jay MD, Resident 08/31/23 12:11
Discharge Summary
Discharge Data
Date of Admission: 08/29/23
Date of Discharge: 08/31/23
-
Pending Results: No
Hospital Course
Patient is a 67-year-old female with a past medical history of left bundle branch block, hypertension, hyperlipidemia, cardiac microvascular disease, CKD II, who presented to [facility] with episodes of recurrent syncope. S/p Dominguez ILR
05/18/23, patient had a syncopal episode which recorded complete heart block, a cystoscopy on ILR and received bystander CPR on 08/24/2023. Patient's ECG on admission was consistent with left bundle branch block. A temporary pacer was placed in the
ED pending permanent pacemaker placement. Patient was seen in consultation with cardiology, underwent successful implantation of dual-chamber conduction system pacemaker and the implanted loop recorder was removed.
Patient's lab also showed elevated TSH with normal free T4 consistent with subclinical symptomatic hypothyroidism in the setting of complete heart block. Patient was started on 50 mcg levothyroxine daily and now instructed at discharge to recheck
thyroid function test in 4 to 6 weeks with her primary care physician. Because patient's retrospective syncopal episode and less likely to be seizure disorder, patient's antiseizure medications has been discontinued at discharge. Patient is
currently afebrile and hemodynamically stable for discharge.
Discharge Plan
-
Patient Disposition: Home (Routine Discharge)
Discharge Diagnosis/Procedures: Pacemaker implant
Complete heart block
Hypothyroidism
Diet: Regular
Activity: No restrictions
Driving Restrictions: No driving for 1 week
Blood Work: TSH, Free T4 in 3-4 weeks
Stand Alone Forms: DC Inst - Implanted Device
Referrals:
[facility] [Provider Group] - 09/06/23 2:20 pm (Post device incision check appointment)
Noemi Montemayor DO [Non-Admitting Privileges] -
Prescriptions:
New
levothyroxine 50 mcg Tablet
50 mcg PO DAILY AT 0700 Qty: 30 0RF
Continued
multivitamin Tablet
1 tab PO DAILY
carvedilol 12.5 mg Tablet
12.5 mg PO BID
isosorbide mononitrate 30 mg Tablet Extended Release 24 Hr
30 mg PO DAILY
lansoprazole 15 mg Capsule,Delayed Release(Dr/Ec)
15 mg PO DAILY
aspirin 81 mg Tablet,Chewable
81 mg PO DAILY
rosuvastatin 10 mg Tablet
10 mg PO HS
cholecalciferol (vitamin D3) [Vitamin D3] 25 mcg (1,000 unit) Tablet
25 mcg PO DAILY Qty: 0
ranolazine 1,000 mg Tablet Extended Release 12 Hr
1,000 mg PO BID
omega 5-fbu-toe-fish oil [Fish Oil] 1,000 mg (120 mg-180 mg) Capsule
1 cap PO DAILY Qty: 0
calcium carbonate 500 mg calcium (1,250 mg) Tablet
500 mg PO DAILY
Discontinued
topiramate 25 mg Tablet
25 mg PO BID
lacosamide [Vimpat] 50 mg Tablet
50 mg PO BID
Discharge Orders:
Discharge Patient (As Directed); Ordered 08/31/23
Ordered By: Tray Jay
Care Plan Goals
Care Plan Goals:
Problem: Readiness for enhanced knowledge related to diagnosis and treatment plan
Goal: Understand your diagnosis and treatment plan needs, including medications if applicable.
Instructions: Know your diagnosis, underlying causes and treatment plan options, including medications if applicable. Consult with your health care team to learn about your diagnosis and treatment plan, including medications if applicable.

Documented by User: Jake Huff MD 08/31/23 12:12
Discharge Summary
Discharge Data
Date of Admission: 08/29/23
Date of Discharge: 08/31/23
Discharge Plan
-
Patient Disposition: Home (Routine Discharge)
Discharge Diagnosis/Procedures: Pacemaker implant
Complete heart block
Hypothyroidism
Diet: Regular
Activity: No restrictions
Driving Restrictions: No driving for 1 week
Blood Work: TSH, Free T4 in 3-4 weeks
Stand Alone Forms: [facility] Inst - Implanted Device
Referrals:
[facility] [Provider Group] - 09/06/23 2:20 pm (Post device incision check appointment)
Noemi Montemayor DO [Non-Admitting Privileges] -
Prescriptions:
New
levothyroxine 50 mcg Tablet
50 mcg PO DAILY AT 0700 Qty: 30 0RF
Continued
multivitamin Tablet
1 tab PO DAILY
carvedilol 12.5 mg Tablet
12.5 mg PO BID
isosorbide mononitrate 30 mg Tablet Extended Release 24 Hr
30 mg PO DAILY
lansoprazole 15 mg Capsule,Delayed Release(Dr/Ec)
15 mg PO DAILY
aspirin 81 mg Tablet,Chewable
81 mg PO DAILY
rosuvastatin 10 mg Tablet
10 mg PO HS
cholecalciferol (vitamin D3) [Vitamin D3] 25 mcg (1,000 unit) Tablet
25 mcg PO DAILY Qty: 0
ranolazine 1,000 mg Tablet Extended Release 12 Hr
1,000 mg PO BID
omega 6-yro-qvs-fish oil [Fish Oil] 1,000 mg (120 mg-180 mg) Capsule
1 cap PO DAILY Qty: 0
calcium carbonate 500 mg calcium (1,250 mg) Tablet
500 mg PO DAILY
Discontinued
topiramate 25 mg Tablet
25 mg PO BID
lacosamide [Vimpat] 50 mg Tablet
50 mg PO BID
Discharge Orders:
Discharge Patient (As Directed); Ordered 08/31/23
Ordered By: Tray Jay
Care Plan Goals
Care Plan Goals:
Problem: Readiness for enhanced knowledge related to diagnosis and treatment plan
Goal: Understand your diagnosis and treatment plan needs, including medications if applicable.
Instructions: Know your diagnosis, underlying causes and treatment plan options, including medications if applicable. Consult with your health care team to learn about your diagnosis and treatment plan, including medications if applicable.
[2023-08-31 11:28] VITALS: BP 110/66
--- NOTE | 2023-08-31 13:09 | PTCARENOTE ---
Pt seen by Monalisa and Asya. Telemetry and IV device removed. Discharge instructions reviewed with pt and his regarding activity and driving guidelines, medications and pain management, wound care, reproting cares and concerns and
follow up appt's. Very good understanding verbalized, pt states she will follow up with her PCP for thyroid functions tests in 3-4 weeks. Pt escorted out via wheelchair and discharged to home.
== END 2023-08-31 12:30 | disposition home or self-care (01) | DRG 243 ==
LOC: IVU 21:00
PROVIDERS: Internal Medicine Cardiovascular Disease; Nurse Practitioner; Physician Assistant Medical; ADMITTING PHYSICIAN Hospitalist; ATTENDING PHYSICIAN Internal Medicine; CONSULT PHYSICIAN Internal Medicine Cardiovascular Disease; EMERGENCY PHYSICIAN Emergency Medicine
PROC: 02HK3JZ Insertion of Pacemaker Lead into Right Ventricle, Percutaneous Approach (ICD-10-PCS; 2023-08-30)
PROC: 0JH606Z Insertion of Pacemaker, Dual Chamber into Chest Subcutaneous Tissue and Fascia, Open Approach (ICD-10-PCS; 2023-08-30)
PROC: 02H63JZ Insertion of Pacemaker Lead into Right Atrium, Percutaneous Approach (ICD-10-PCS; 2023-08-30)
DX: I49.5 Sick sinus syndrome (principal); I44.2 Atrioventricular block, complete; N18.2 Chronic kidney disease, stage 2 (mild); I12.9 Hypertensive chronic kidney disease with stage 1 through stage 4 chronic kidney disease, or unspecified chronic kidney disease; E78.5 Hyperlipidemia, unspecified; E11.22 Type 2 diabetes mellitus with diabetic chronic kidney disease; K21.9 Gastro-esophageal reflux disease without esophagitis; Z79.82 Long term (current) use of aspirin
CPT/HCPCS: 33208; 33286; 71045; 80048; 80053; 81003; 83735; 84439; 84443; 84484; 85025; 85027; 93005; 99285; C1769; C1785; C1887; C1892; C1898; Q9967

== ENCOUNTER → 2023-10-27 10:51 | Outpatient (REF) | payer OTHER, SELFPAY | LOC: DHCBC/DCA 10:51 | PROVIDERS: ATTENDING PHYSICIAN Internal Medicine Cardiovascular Disease; FAMILY PHYSICIAN Family Medicine Geriatric Medicine | DX: I10 Essential (primary) hypertension (principal); R94.31 Abnormal electrocardiogram [ECG] [EKG] | CPT/HCPCS: 78452; 93017; A9500; J2785 ==